=== PATIENT | male | born 1945 | race Caucasian/White ===

== ENCOUNTER 2019-05-29 00:32 | Day surgery (SDC) | payer MEDICARE, SELFPAY ==
[2019-05-28 16:59] VITALS: BMI 30.4
[2019-05-29] VITALS (11 sets, daily range): BP systolic 111–146; BP diastolic 78–90; PULSE 54–88; RESP 12–20; TEMP 36.8; O2SAT 93–99
--- NOTE | 2019-05-29 06:08 | ECG_ITS ---
Measurements Intervals [place] Rate: 89 P: [place]: 0 QRS: 43 QRSD: 101 T: 31 QT: 385 QTc: 469 Interpretive Statements ATRIAL FIBRILLATION NONSPECIFIC ST & T-WAVE ABNORMALITY- INF/LAT LEADS BASELINE ARTIFACT- II, III, V1 ABNORMAL ECG Electronically Signed On 05-29-2019 10:23:36 JBOSS ARCHITECT by Abe Nunez D.O.
--- NOTE | 2019-05-29 10:20 | SUR.PREOP ---
Patient and arrives to [facility] room [address] Martinez. oriented to unit, procedure explained, all questions answered, IV started, Labs drawn and sent, and consent signed.
[2019-05-29 11:03] LABS: Blood Urea Nitrogen 28 mg/dL (9-20); Calcium 9.3 mg/dL (8.4-10.2); Carbon Dioxide 27 mmol/L (22-30); Chloride 103 mmol/L (98-107); Estimated CRCL calculation 61 ml/min; Estimated Glomerular Filt Rate 54; Glucose 100 mg/dL (75-110); Magnesium 1.9 mg/dL (1.6-2.3); Potassium 4.6 mmol/L (3.4-5.0); Sodium 140 mmol/L (137-145)
--- NOTE | 2019-05-29 11:44 | WPDMODSED ---
Moderate Sedation Note-Pt Data Patient Data Diagnosis: Atrial fibrillation Present Complaint: None Procedure to be performed/Plan: Elective electrical cardioversion Allergies Allergy/AdvReac Type Severity Reaction Status Date / Time No Known Allergies Allergy NONE Verified 05/17/19 11:35 Home Medications Medication Instructions Recorded Confirmed Type Bacillus coagulans 10 billion cell 1 cell PO DAILY 02/24/19 05/29/19 History capsule,delayed release apixaban 5 mg tablet 5 mg PO BID 02/24/19 05/29/19 History calcium carbonate-vitamin D3 600 1 tablet PO BID 02/24/19 05/29/19 History mg (1,500 mg)-800 unit tablet diltiazem HCl 240 mg 240 mg PO DAILY 02/24/19 05/29/19 History capsule,extended release 24 hr docusate sodium 100 mg capsule 100 mg PO BID 02/24/19 05/29/19 History finasteride 5 mg tablet 5 mg PO HS 02/24/19 05/29/19 History fluticasone 250 mcg-salmeterol 50 1 inhalation INHALATION BID 02/24/19 05/29/19 History mcg/dose blistr powdr for inhalation levalbuterol tartrate 45 2 inhalation INHALATION Q6H 02/24/19 05/29/19 History mcg/actuation aerosol inhaler lisinopril 5 mg tablet 5 mg PO DAILY 02/24/19 05/29/19 History pantoprazole 40 mg tablet,delayed 40 mg PO HS 02/24/19 05/29/19 History release tamsulosin 0.4 mg capsule 0.4 mg PO HS 02/24/19 05/29/19 History meloxicam 7.5 mg tablet 7.5 mg PO DAILY #30 tablet 03/13/19 05/29/19 Rx tiotropium bromide 18 mcg capsule 1 cap INHALATION DAILY 05/17/19 05/29/19 History with inhalation device cholecalciferol (vitamin D3) 125 mcg PO DAILY 05/29/19 05/29/19 History [Vitamin D3] potassium gluconate 595 mg PO DAILY 05/29/19 05/29/19 History simvastatin 20 mg PO HS 05/29/19 05/29/19 History Current Medications: See list. Sedation/Anesthesia: No previous sedation/anesthesia problems (including family history). [facility] Past Medical History Medical History Anemia AVM (arteriovenous malformation) of colon COPD (chronic obstructive pulmonary disease) Duodenal cancer Hx of gastrointestinal hemorrhage MERVIN (obstructive sleep apnea) Paroxysmal atrial fibrillation Family History Family History Father Family history of emphysema, Onset Age: 84 Patient's father is Mother Family history of dementia, Onset Age: 86 Patient's mother is Social History Social History Smoking status: Former smoker Second hand tobacco smoke exposure: No Smoking end date: 04/18/04 Alcohol intake: current Gender identity (if verbalized by the patient): Male Mod Sed Physical Exam Physical Exam Pre Procedural Exam: Normal: Appearance, Eyes, Ears, Nose, Neck (Supple, normal range of motion), Throat (Posterior hypopharynx clear, nonerythematous), Airway (Normal anatomy, no obstruction), Lungs (Clear to auscultation bilaterally), Heart Size, Heart Rate, Neuro Exam, Abdomen, Liver, Kidneys, Extremities and Skin and Variation: Heart Rhythm (Irregular irregular) Hours since solid foods: 12 Hours since liquid intake: 12 Internal Medicine - PN: Obj Da Vital Signs Vital Signs: Vital Signs - 24 hr 05/29/19 10:21 Temperature 36.8 C Pulse Rate 88 Respiratory Rate 19 Blood Pressure 146/85 H Pulse Oximetry 94 Labs CBC & Chem 7: 05/29/19 10:19 Labs: Laboratory Results - last 24 hr 05/29/19 10:19 Sodium 140 Potassium 4.6 Chloride 103 Carbon Dioxide 27 BUN 28 H Creatinine 1.30 Estim Creat Clear Calc 61 Estimated GFR 54 L Glucose 100 Calcium 9.3 Magnesium 1.9 ASA Classification/Sedation ASA Classification/Sedation ASA Class: III Emergent: No Risks: Risks, benefits and alternatives explained and patient/family accepted plan for sedation. Patient re-evaluated immediately prior to sedation.
--- NOTE | 2019-05-29 11:49 | WPDHPUPDATE1 ---
History and Physical Update Update Date/Time: 05/29/19 11:49 Past medical history: As above. Social history:
--- NOTE | 2019-05-29 12:33 | ECG_ITS ---
Measurements Intervals [place] Rate: 57 P: -18 [place]: 222 QRS: 27 QRSD: 104 T: 45 QT: 422 QTc: 413 Interpretive Statements SINUS BRADYCARDIA WITH FIRST DEGREE AV BLOCK NONSPECIFIC ST & T-WAVE ABNORMALITY- DIFFUSE LEADS ABNORMAL ECG Electronically Signed On 05-29-2019 13:01:14 MANAGEMENT DEPARTMENT CHAIR by Abe BEAL
--- NOTE | 2019-05-29 12:34 | SUR.PHASEII ---
Patient remains in [facility] room [address] Martinez. Carlosm converted after a single shock of 200 J to sinus bradycardia.
--- NOTE | 2019-05-29 12:41 | P.PCNCVR_ITS ---
Cardioversion Cardioversion Date of procedure: 05/29/19 Procedure: Elective electrical cardioversion Pre-op diagnosis: Atrial fibrillation Post-op diagnosis: same Indications: Atrial fibrillation Description of procedure: Brief history present illness: Patient is a pleasant 73-year-old male with history of CAD, hypertension, obstructive sleep apnea on CPAP, and atrial fibrillation on anticoagulation with persistent atrial fibrillation referred for elective electrical cardioversion in attempt to restore sinus rhythm. Procedure in detail: After verbal and written informed consent was obtained the patient risks, benefits, and alternatives explained in detail the patient agreed to proceed with the plan of care as outlined above. Patient was evaluated at bedside in the [facility] procedure room. On examination, neck was supple with normal range of motion, no restrictions to opening of the oral cavity, jaw angle and posterior hypopharynx was clear. Lungs were clear to auscultation. Patient was placed in appropriate 30 to 45 degree angle in a supine position. Patient was monitored throughout the study with telemetry, oxygen saturation, end-tidal CO2 monitoring, blood pressure, heart rate, and respirations. Anterior and posterior defibrillator pads placed in the appropriate positions. After confirmation of adequate sedation electrical cardioversion was carried out without complication. Patient tolerated the procedure well without difficulty. Of note, patient as instructed brought his CPAP machine from home. With the assistance of respiratory therapy he was fitted with a mask as he forgot his and his device was checked out for function prior to beginning the procedure. Once all was confirmed and functional he underwent sedation and cardioversion with CPAP support. Complications: None Sedation: Moderate Sedation/Anesthesia administration: Patient denied previous intolerance or complications with anesthesia/sedation. Please see sedation note for documentation of the pre-procedure physical examination. A total of 5mg intravenous Versed and a total of 100 mcg intravenous Fentanyl in multiple divided doses was utilized for moderate sedation. Sedation start time was 1212 and end time was 1231 for a total of 19 minutes [id number] intra-procedure time. Sedation was administered by a qualified observer Gilles Lees RN under my supervision with intra-procedure [id number] observation and management throughout the entirety of the pr ocedure. There were no other issues or complications and patient tolerated the procedure well and sedation protocol well and I was present for the entirety. As above, patient wore CPAP for additional support throughout procedure. Findings: Elective electrical cardioversion: After confirmation of adequate sedation and persistence of atrial fibrillation, 200 joules synched biphasic energy x1 was delivered with immediate confucianism of sinus rhythm. Twelve lead EKG was obtained postprocedure confirming sinus rhythm. Conclusion: Successful confucianism of sinus rhythm 200 joules synched biphasic energy x1. Recommendations: Continue systemic anticoagulation without interruption particularly over the next 30 days. Continue diltiazem 360 mg daily monitor heart rate and blood pressure closely call with any concerns or questions.
== END 2019-05-29 15:23 | disposition home or self-care (01) ==
PROVIDERS: PCP Internal Medicine; Visit Provider Internal Medicine Cardiovascular Disease
PROC: 5A2204Z Restoration of Cardiac Rhythm, Single (ICD-10-PCS; principal; 2019-05-29 11:30)
DX: I48.19 Other persistent atrial fibrillation (principal); I10 Essential (primary) hypertension; I25.10 Atherosclerotic heart disease of native coronary artery without angina pectoris; G47.33 Obstructive sleep apnea (adult) (pediatric); D64.9 Anemia, unspecified; Z79.01 Long term (current) use of anticoagulants; Z87.891 Personal history of nicotine dependence
CPT/HCPCS: 36415; 80048; 83735; 92960; 93005; J7040

== ENCOUNTER 2019-07-11 08:29 | Inpatient (IN) | payer MEDICARE, SELFPAY ==
[2019-07-11] VITALS (11 sets, daily range): BP systolic 126–151; BP diastolic 84–101; PULSE 63–112; RESP 16–20; TEMP 36.4–37.3; O2SAT 92–96; BMI 30.6
--- NOTE | 2019-07-11 | ECG_ITS ---
Measurements Intervals [place] Rate: 101 P: CT: 0 QRS: 46 QRSD: 102 T: 95 QT: 354 QTc: 461 Interpretive Statements ATRIAL FIBRILLATION WITH RAPID VENTRICULAR RESPONSE NONSPECIFIC ST & T-WAVE ABNORMALITY- DIFFUSE LEADS ABNORMAL ECG Electronically Signed On 07-11-2019 14:13:05 CDT by Abe Nunez D.O.
--- NOTE | 2019-07-11 08:50 | PC.NURSE ---
This patient, Gregor Parikh, was admitted to IMU Room 200-01. Patient/family oriented to hospital policies and general routines including ID bracelet, bed and alarms, visiting hours, pain management, procedures, bathroom and other care routines, personal items, smoking policy, room service/diet, and visiting hours. Valuables list has been completed. Information on how to activate the Rapid Response Team has been discussed. Patient/Family are encouraged to report perceived risks to care and to ask questions if they do not understand what they are told or what they should do.
--- NOTE | 2019-07-11 10:35 | ECG_ITS ---
Measurements Intervals [place] Rate: 101 P: [place]: 0 QRS: 49 QRSD: 102 T: 0 QT: 352 QTc: 458 Interpretive Statements ATRIAL FIBRILLATION WITH RAPID VENTRICULAR RESPONSE NONSPECIFIC ST & T-WAVE ABNORMALITY- DIFFUSE LEADS ABNORMAL ECG Electronically Signed On 07-11-2019 10:58:11 CDT by Abe Nunez D.O.
--- NOTE | 2019-07-11 11:10 | PM.IMHP ---
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 Patient was then set up for a scheduled direct admit for sotalol loading. Patient feels well with exception of feeling somewhat tired with some shortness of breath. No chest pain, dizziness, lightheadedness or significant palpitations. No bleeding. Patient has been compliant with his anticoagulation without interruption. He has no other complaints at this time. Denies edema, bright red blood per rectum, fevers, chills, cough, orthopnea or PND. Review of Systems Review of Systems: All systems reviewed & are unremarkable except as noted in HPI and below Constitutional: Constitutional: Reports as per HPI, Reports no additional constitutional complaints, Reports fatigue and Denies weakness Eyes: Eyes: Reports as per HPI, Reports no additional eye complaints and Denies blurry vision ENT: Reports system reviewed and no additional complaints, except as documented, Reports as per HPI, Denies epistaxis, Denies nasal congestion and Denies nasal discharge Cardiovascular: Cardiovascular: Reports as per HPI, Reports no additional cardiovascular complaints, Denies chest pain, Denies leg edema, Denies lightheadedness and Denies palpitations Respiratory: Respiratory: Reports as per HPI, Reports no additional respiratory complaints, Denies chest congestion, Denies cough, Denies hemoptysis, Reports dyspnea on exertion and Denies wheezing Gastrointestinal: Gastrointestinal: Reports as per HPI, Reports no additional gastrointestinal complaints, Denies abdominal pain, Denies melena, Denies hematochezia, Denies diarrhea, Denies nausea, Denies vomiting and Denies hematemesis Genitourinary: Genitourinary: Reports no additional male genitourinary complaints, Reports as per HPI, Denies hematuria and Denies dysuria Musculoskeletal: Musculoskeletal: Reports no additional musculoskeletal complaints, Reports as per HPI, Denies back pain, Denies myalgias and Denies stiffness Integumentary/Breasts: Skin/Breast: Reports system reviewed and no additional complaints, except as docu, Reports as per HPI and Denies rash Neurologic: Reports system reviewed and no additional complaints, except as documented, Reports as per HPI, Denies Abnormal speech present and Denies headache(s) Psychiatric: Psychiatric: Reports no additional psychiatric complaints, Reports as per HPI, Denies anxiety, Denies behavioral changes and Denies confusion Endocrine: Endocrine: Reports no additional endocrine complaints, Reports as per HPI and Reports fatigue Hematologic/Lymphatic: Hematologic/Lymphatic: Reports no additional hematologic/lymphatic complaints, Reports as per HPI, Denies easy bleeding and Denies easy bruising Allergic/Immunologic: Allergic/Immunologic: Reports no additional allergic/immunologic complaints, Reports as per HPI and Denies GI upset with certain foods PMFSH Past Medical History Medical History Anemia AVM (arteriovenous malformation) of colon COPD (chronic obstructive pulmonary disease) Duodenal cancer Hx of gastrointestinal hemorrhage MERVIN (obstructive sleep apnea) Paroxysmal atrial fibrillation Family History Family History Father Family history of emphysema, Onset Age: 84 Patient's father is Mother Family history of dementia, Onset Age: 86 Patient's mother is Social History
[2019-07-11] MEDS: SOTALOL HCL 80 MG TABLET PO ×2 (12:01→21:46)
[2019-07-11] MEDS: APIXABAN 5 MG TABLET PO (17:35)
[2019-07-11] MEDS: DOCUSATE SODIUM 100 MG CAPSULE PO (17:35)
[2019-07-11] MEDS: TAMSULOSIN HCL 0.4 MG CAPSULE PO (21:46)
[2019-07-11] MEDS: FINASTERIDE 5 MG TABLET PO (21:46)
[2019-07-11] MEDS: SIMVASTATIN 20 MG TABLET PO (21:46)
[2019-07-11] MEDS: PANTOPRAZOLE 40 MG TABLET PO (21:46)
--- NOTE | 2019-07-11 23:58 | ECG_ITS ---
Measurements Intervals [place] Rate: 62 P: [place]: 0 QRS: 50 QRSD: 107 T: 93 QT: 422 QTc: 431 Interpretive Statements ATRIAL FIBRILLATION NONSPECIFIC ST & T-WAVE ABNORMALITY- DIFFUSE LEADS ABNORMAL ECG Electronically Signed On 07-12-2019 11:19:44 CDT by Abe Nunez D.O.
[2019-07-12] VITALS (18 sets, daily range): BP systolic 118–144; BP diastolic 72–91; PULSE 53–96; RESP 16–18; TEMP 36.1–36.9; O2SAT 90–96
[2019-07-12] MEDS: SOTALOL HCL 80 MG TABLET PO ×2 (09:15→21:40)
[2019-07-12] MEDS: APIXABAN 5 MG TABLET PO ×2 (09:15→17:26)
[2019-07-12] MEDS: lisinopriL 5 MG TABLET PO (09:15)
[2019-07-12] MEDS: CHOLECALCIFEROL 1,000 UNIT TABLET 5000 UNITS PO (09:16)
[2019-07-12] MEDS: DOCUSATE SODIUM 100 MG CAPSULE PO ×2 (09:16→17:26)
--- NOTE | 2019-07-12 10:32 | PM.PNCARD ---
Progress Note: A&P Assessment and Plan (1) Persistent atrial fibrillation: Code(s): I48.19 - Other persistent atrial fibrillation Status: Acute Assessment and Plan: Admitted for sotalol loading. QTc is stable. No ventricular arrhythmias overnight. Occasional bradycardia during sleep hours with pauses. Longest 2.09 seconds Continue sotalol loading with EKGs 2 hours after each dose. Labs pending. If he does not convert with sotalol will plan for cardioversion for tomorrow. NPO after midnight. (2) Encounter for monitoring sotalol therapy: Code(s): Z51.81 - Encounter for therapeutic drug level monitoring; Z79.899 - Other terminal gauger supervisor (current) drug therapy Status: Acute Assessment and Plan: Sotalol loading as above. (3) CAD (coronary artery disease): Qualifiers: Coronary Disease-Associated Artery/Lesion type: [place] artery [place] vs. transplanted heart: [place] heart Associated angina: without angina Qualified Code(s): I25.10 - Atherosclerotic heart disease of [place] coronary artery without angina pectoris Code(s): I25.10 - Atherosclerotic heart disease of [place] coronary artery without angina pectoris Status: Acute Assessment and Plan: Stable, asymptomatic. Continue medical therapy. Continue simvastatin (4) Hypertension: Qualifiers: Hypertension type: essential hypertension Qualified Code(s): I10 - Essential (primary) hypertension Code(s): I10 - Essential (primary) hypertension Status: Acute Assessment and Plan: At goal after medications. (5) Chronic anticoagulation: Code(s): Z79.01 - assistant terminal manager (current) use of anticoagulants Status: Acute Assessment and Plan: Continue systemic anticoagulation with apixaban 5 mg twice daily. Monitor for bleeding. Additional Plan Plan discussed with Dr. Martinez 1055 07/12/2019 Time Spent With Patient Time with patient: less than 15 minutes Subjective Date/time seen: 07/12/19 10:32 Review of Systems Constitutional: Constitutional: Denies headache(s) and Denies weakness Eyes: Eyes: Denies blurry vision ENT: Denies headache(s), Denies epistaxis, Denies nasal congestion and Denies nasal discharge Cardiovascular: Cardiovascular: Denies chest pain, Denies leg edema, Denies lightheadedness, Denies palpitations and Denies dyspnea Respiratory: Respiratory: Denies chest congestion, Denies cough, Denies hemoptysis, Denies dyspnea and Denies wheezing Gastrointestinal: Gastrointestinal: Denies abdominal pain, Denies melena, Denies hematochezia, Denies diarrhea, Denies nausea, Denies vomiting and Denies hematemesis Genitourinary: Genitourinary: Denies hematuria and Denies dysuria Musculoskeletal: Musculoskeletal: Reports arthralgias Integumentary/Breasts: Skin/Breast: Denies rash Neurologic: Denies Abnormal speech present, Denies behavioral changes, Denies confusion, Denies headache(s) and Denies weakness Psychiatric: Psychiatric: Denies anxiety, Denies behavioral changes and Denies confusion Endocrine: Endocrine: Reports fatigue and Denies palpitations Hematologic/Lymphatic: Hematologic/Lymphatic: Denies easy bleeding and Denies easy bruising Allergic/Immunologic: Allergic/Immunologic: Denies GI upset with certain foods and Denies wheezing Exam Narrative: Exam Narrative: General: Sitting up in bed. Comfortable, pleasant and cooperative Head: atraumatic, normocephalic Eyes: EOM intact, sclerae anicteric, conjunctivae unremarkable Ears/Nose: external inspection of ears and nose were grossly normal Mouth/Throat: oral mucosa pink and moist Neck: supple, normal range of motion, no jugular venous distention, trachea midline. Cardiac: irregular rate and rhythm, normal S1-S2, no murmurs, clicks, gallops, or rubs. Lungs: Clear to ausculta
[2019-07-12 10:54] LABS: Hematocrit 45.6 % (42.0-52.0); Hemoglobin 14.8 g/dL (14.0-18.0); Mean Corpuscular HGB Conc 32.5 g/dl (32-36); Mean Corpuscular Volume 101.8 fl (80-100); Mean Platelet Volume 9.9 fl (7.4-10.4); Platelet Count Result 291 k/mm3 (150-375); Red Blood Count 4.48 M/mm3 (4.6-6.20); White Blood Count 7.2 K/mm3 (4.5-10.0)
[2019-07-12 11:06] LABS: Alanine Aminotransferase 15 U/L (4-50); Albumin Level 3.4 g/dL (3.5-5.1); Alkaline Phosphatase 47 U/L (38-126); Aspartate Amino Transferase 20 U/L (17-59); Bilirubin,Total 0.7 mg/dL (0.2-1.3); Blood Urea Nitrogen 29 mg/dL (9-20); Carbon Dioxide 30 mmol/L (22-30); Chloride 102 mmol/L (98-107); Estimated CRCL calculation 59 ml/min; Estimated Glomerular Filt Rate 54; Glucose 107 mg/dL (75-110); Potassium 4.3 mmol/L (3.4-5.0); Sodium 139 mmol/L (137-145)
[2019-07-12 11:08] LABS: Magnesium 1.9 mg/dL (1.6-2.3)
--- NOTE | 2019-07-12 11:15 | ECG_ITS ---
Measurements Intervals [place] Rate: 67 P: [place]: 0 QRS: 45 QRSD: 100 T: 104 QT: 429 QTc: 455 Interpretive Statements ATRIAL FIBRILLATION VENTRICULAR PREMATURE COMPLEX NONSPECIFIC ST & T-WAVE ABNORMALITY- DIFFUSE LEADS ABNORMAL ECG Electronically Signed On 07-12-2019 13:36:02 CDT by Abe Nunez D.O.
[2019-07-12] MEDS: TAMSULOSIN HCL 0.4 MG CAPSULE PO (21:40)
[2019-07-12] MEDS: FINASTERIDE 5 MG TABLET PO (21:40)
[2019-07-12] MEDS: SIMVASTATIN 20 MG TABLET PO (21:41)
[2019-07-12] MEDS: PANTOPRAZOLE 40 MG TABLET PO (21:41)
--- NOTE | 2019-07-12 23:39 | ECG_ITS ---
Measurements Intervals [place] Rate: 70 P: [place]: 0 QRS: 52 QRSD: 109 T: 85 QT: 426 QTc: 460 Interpretive Statements ATRIAL FIBRILLATION NONSPECIFIC ST & T-WAVE ABNORMALITY- INF/LAT LEADS ABNORMAL ECG Electronically Signed On 07-13-2019 7:17:51 CDT by Abe Nunez D.O.
[2019-07-13] VITALS (17 sets, daily range): BP systolic 106–160; BP diastolic 63–88; PULSE 48–86; RESP 12–20; TEMP 36.2–37; O2SAT 91–96
[2019-07-13 06:45] LABS: Blood Urea Nitrogen 28 mg/dL (9-20); Calcium 9.7 mg/dL (8.4-10.2); Carbon Dioxide 27 mmol/L (22-30); Chloride 107 mmol/L (98-107); Estimated CRCL calculation 54 ml/min; Estimated Glomerular Filt Rate 49; Glucose 97 mg/dL (75-110); Magnesium 1.9 mg/dL (1.6-2.3); Sodium 136 mmol/L (137-145)
[2019-07-13] MEDS: APIXABAN 5 MG TABLET PO (07:44)
--- NOTE | 2019-07-13 09:08 | ECG_ITS ---
Measurements Intervals [place] Rate: 48 P: -2 ID: 204 QRS: 32 QRSD: 100 T: 98 QT: 488 QTc: 440 Interpretive Statements SINUS BRADYCARDIA BORDERLINE AV CONDUCTION DELAY LEFT ATRIAL ENLARGEMENT BORDERLINE ST-T WAVE ABNORMALITY- DIFFUSE LEADS ABNORMAL ECG Electronically Signed On 07-13-2019 10:40:56 CDT by Abe Nunez D.O.
--- NOTE | 2019-07-13 09:12 | WPDMODSED ---
Moderate Sedation Note-Pt Data Patient Data Diagnosis: Atrial fibrillation Present Complaint: Non Procedure to be performed/Plan: Elective electrical cardioversion Allergies Allergy/AdvReac Type Severity Reaction Status Date / Time No Known Allergies Allergy NONE Verified 05/17/19 11:35 Home Medications Medication Instructions Recorded Confirmed Type Bacillus coagulans 10 billion cell 1 cell PO DAILY 02/24/19 07/11/19 History capsule,delayed release apixaban 5 mg tablet 5 mg PO BID 02/24/19 07/11/19 History calcium carbonate-vitamin D3 600 1 tablet PO BID 02/24/19 07/11/19 History mg (1,500 mg)-800 unit tablet docusate sodium 100 mg capsule 100 mg PO BID 02/24/19 07/11/19 History finasteride 5 mg tablet 5 mg PO HS 02/24/19 07/11/19 History fluticasone 250 mcg-salmeterol 50 1 inhalation INHALATION BID 02/24/19 07/11/19 History mcg/dose blistr powdr for inhalation levalbuterol tartrate 45 2 inhalation INHALATION PRN PRN 02/24/19 07/11/19 History mcg/actuation aerosol inhaler lisinopril 5 mg tablet 5 mg PO DAILY 02/24/19 07/11/19 History pantoprazole 40 mg tablet,delayed 40 mg PO HS 02/24/19 07/11/19 History release tamsulosin 0.4 mg capsule 0.4 mg PO HS 02/24/19 07/11/19 History tiotropium bromide 18 mcg capsule 1 cap INHALATION DAILY 05/17/19 07/11/19 History with inhalation device cholecalciferol (vitamin D3) 125 mcg PO DAILY 05/29/19 07/11/19 History [Vitamin D3] diltiazem HCl [Cardizem CD] 360 mg PO DAILY #30 cap 05/29/19 07/11/19 Rx potassium gluconate 99 mg PO DAILY 05/29/19 07/11/19 History simvastatin 20 mg PO HS 05/29/19 07/11/19 History meloxicam 7.5 mg tablet 7.5 mg PO DAILY #30 tablet 06/20/19 07/11/19 Rx Current Medications: Active Medications Apixaban (Eliquis) 5 mg PO BID KASSANDRA Last Admin: 07/13/19 07:44 Dose: 5 mg Documented by: Calcium Carbonate (Os-Rajinder 500 +D Tablet) 500 mg PO BID [facility] Last Admin: 07/12/19 17:26 Dose: 500 mg Documented by: Docusate Sodium (Colace Capsule) 100 mg PO BID [facility] Last Admin: 07/12/19 17:26 Dose: 100 mg Documented by: Finasteride (Proscar) 5 mg PO [facility] Last Admin: 07/12/19 21:40 Dose: 5 mg Documented by: Levalbuterol HCl (Xopenex Hfa) 2 puff INHALATION PRN PRN PRN Reason: Bronchospasm Lisinopril (Prinivil) 5 mg PO DAILY [facility] Last Admin: 07/12/19 09:15 Dose: 5 mg Documented by: Pantoprazole Sodium (Protonix) 40 mg PO [facility] Last Admin: 07/12/19 21:41 Dose: 40 mg Documented by: Fluticasone/Salmeterol (Advair Hfa 115-21 Mcg Inhaler (*Sp)) 2 puff INHALATION Q12HRT [facility] Last Admin: 07/13/19 08:21 Dose: 2 puff Documented by: Simvastatin (Zocor) 20 mg PO [facility] Last Admin: 07/12/19 21:41 Dose: 20 mg Documented by: Sotalol HCl (Betapace) 80 mg PO Q12HR [facility] Last Admin: 07/12/19 21:40 Dose: 80 mg Documented by: Tamsulosin HCl (Flomax) 0.4 mg PO [facility] Last Admin: 07/12/19 21:40 Dose: 0.4 mg Documented by: Tiotropium [place] (Spiriva) 1 cap INHALATION DAILY [facility] Last Admin: 07/13/19 08:21 Dose: 1 cap Documented by: Vitamin D (Vitamin D) 5,000 unit PO DAILY [facility] Last Admin: 07/12/19 09:16 Dose: 5,000 unit Documented by: Sedation/Anesthesia: No previous sedation/anesthesia problems (including family history). [facility] Past Medical History Medical History Anemia AVM (arteriovenous malformation) of colon CAD (coronary artery disease) Chronic anticoagulation COPD (chronic obstructive pulmonary disease) Duodenal cancer Hx of gastrointestinal hemorrhage Hypertension MERVIN (obstructive sleep apnea) Paroxysmal atrial fibrillation Persistent atrial fibrillation Family History Family History Father Family history of emphysema, Onset Age: 84 Patient's father is Mother Family history of dementia, Onset Age: 86 Patient's mother is Social History
--- NOTE | 2019-07-13 09:13 | WPDCARDVER ---
Cardioversion Cardioversion Date of procedure: 07/13/19 Procedure: Elective electrical cardioversion Pre-op diagnosis: Atrial fibrillation Post-op diagnosis: same Indications: Atrial fibrillation Description of procedure: Brief history present illness: Patient is a very pleasant 74-year-old male with a history of paroxysmal atrial fibrillation with prior failed cardioversion admitted for sotalol loading, CAD, hypertension on chronic anticoagulation without interruption referred for elective electrical cardioversion in attempt to restore sinus rhythm. Procedure in detail: After verbal and written informed consent was obtained the patient risks, benefits, and alternatives explained in detail the patient agreed to proceed with the plan of care as outlined above. Patient was evaluated at bedside in the patient's room with telemetry monitoring in an effort to minimize patient transport due to COVID-19 precautions in the hospital. On examination, neck was supple with normal range of motion, no restrictions to opening of the oral cavity, jaw angle and posterior hypopharynx was clear. Lungs were clear to auscultation. Patient was placed in appropriate 30 to 45 degree angle in a supine position. Patient was monitored throughout the study with telemetry, oxygen saturation, end-tidal CO2 monitoring, blood pressure, heart rate, and respirations. Anterior and posterior defibrillator pads placed in the appropriate positions. After confirmation of adequate sedation electrical cardioversion was carried out without complication. Patient tolerated the procedure well without difficulty. Sedation: Moderate Sedation/Anesthesia administration: Patient denied previous intolerance or complications with anesthesia/sedation. Please see sedation note for documentation of the pre-procedure physical examination. As noted above, after adequate local anesthesia of the posterior hypopharynx was achieved, a total of 3mg intravenous Versed and a total of 75mcg intravenous Fentanyl in multiple divided doses was utilized for moderate sedation. Sedation start time was 0855 and end time was 0904 for a total of 9 minutes [id number] intra-procedure time. Sedation was administered by a qualified observer Gilles Lees RN under my supervision with intra-procedure [id number] observation and management throughout the entirety of the procedure. There were no other issues or complications and patient tolerated the procedure well and sedation protocol well and I was present for the entirety. Of note, given patient's history of sleep apnea and use of CPAP chronically, his home CPAP was utilized throughout the procedure. Patient did very well without complication in this regard. Findings: Elective electrical cardioversion: After confirmation of adequate sedation and persistence of atrial fibrillation, 200 joules synched biphasic energy x1 was delivered with immediate hoahaoism of sinus rhythm. Twelve lead EKG was obtained postprocedure confirming sinus rhythm. Complications: None Conclusion: Successful hoahaoism of sinus rhythm with 200 joules synched biphasic energy x1 without complication. Continue systemic anticoagulation without interruption strictly for the next 30 days. Continue sotalol 80 mg twice daily.
--- NOTE | 2019-07-13 09:19 | PM.PNCARD ---
Progress Note: A&P Assessment and Plan (1) Persistent atrial fibrillation: Code(s): I48.19 - Other persistent atrial fibrillation Status: Acute Assessment and Plan: Admitted for sotalol loading. QTc is stable. No ventricular arrhythmias overnight. Cardioversion scheduled today NPO after midnight. If successful and tolerated well discharge home today. Continue CPAP at home. (2) Encounter for monitoring sotalol therapy: Code(s): Z51.81 - Encounter for therapeutic drug level monitoring; Z79.899 - Other skilled nursing (current) drug therapy Status: Acute Assessment and Plan: Sotalol loading as above. (3) CAD (coronary artery disease): Qualifiers: Coronary Disease-Associated Artery/Lesion type: [place] artery [place] vs. transplanted heart: [place] heart Associated angina: without angina Qualified Code(s): I25.10 - Atherosclerotic heart disease of [place] coronary artery without angina pectoris Code(s): I25.10 - Atherosclerotic heart disease of [place] coronary artery without angina pectoris Status: Acute Assessment and Plan: Stable, asymptomatic. Continue medical therapy. Continue simvastatin (4) Hypertension: Qualifiers: Hypertension type: essential hypertension Qualified Code(s): I10 - Essential (primary) hypertension Code(s): I10 - Essential (primary) hypertension Status: Acute Assessment and Plan: At goal after medications. (5) Chronic anticoagulation: Code(s): Z79.01 - prison (current) use of anticoagulants Status: Acute Assessment and Plan: Continue systemic anticoagulation with apixaban 5 mg twice daily. Monitor for bleeding. Subjective Date/time seen: Date of service: 07/13/19 09:19 Follow-up for atrial fibrillation. No new issues overnight. Maintaining atrial fibrillation with controlled heart rate 70s to 80s on average. No palpitation, shortness of breath, dizziness or lightheadedness. No chest pain or shortness of breath. NPO after midnight for cardioversion schedule this morning. Review of Systems Review of Systems: All systems reviewed & are unremarkable except as noted in HPI and below Constitutional: Constitutional: Denies headache(s) and Denies weakness Eyes: Eyes: Denies blurry vision ENT: Denies headache(s), Denies epistaxis, Denies nasal congestion and Denies nasal discharge Cardiovascular: Cardiovascular: Denies chest pain, Denies leg edema, Denies lightheadedness, Denies palpitations and Denies dyspnea Respiratory: Respiratory: Denies chest congestion, Denies cough, Denies hemoptysis, Denies dyspnea and Denies wheezing Gastrointestinal: Gastrointestinal: Denies abdominal pain, Denies melena, Denies hematochezia, Denies diarrhea, Denies nausea, Denies vomiting and Denies hematemesis Genitourinary: Genitourinary: Denies hematuria and Denies dysuria Musculoskeletal: Musculoskeletal: Reports arthralgias Integumentary/Breasts: Skin/Breast: Denies rash Neurologic: Denies Abnormal speech present, Denies behavioral changes, Denies confusion, Denies headache(s) and Denies weakness Psychiatric: Psychiatric: Denies anxiety, Denies behavioral changes and Denies confusion Endocrine: Endocrine: Denies palpitations Hematologic/Lymphatic: Hematologic/Lymphatic: Denies easy bleeding and Denies easy bruising Allergic/Immunologic: Allergic/Immunologic: Denies GI upset with certain foods and Denies wheezing Exam Narrative: Exam Narrative: General: Sitting up in bed. Comfortable, pleasant and cooperative Head: atraumatic, normocephalic Eyes: EOM intact, sclerae anicteric, conjunctivae unremarkable Ears/Nose: external inspection of ears and nose were grossly normal Mouth/Throat: oral mucosa pink and moist Neck: supple, normal range of motion, no jugular venou
[2019-07-13] MEDS: CHOLECALCIFEROL 1,000 UNIT TABLET 5000 UNITS PO (11:17)
[2019-07-13] MEDS: DOCUSATE SODIUM 100 MG CAPSULE PO (11:17)
[2019-07-13] MEDS: lisinopriL 5 MG TABLET PO (11:18)
[2019-07-13] MEDS: SOTALOL HCL 80 MG TABLET PO (12:17)
--- NOTE | 2019-07-13 15:24 | PM.DS ---
DS: Diagnosis Admitting Diagnosis Admitting Diagnosis: Other persistent atrial fibrillation Discharge Diagnosis (1) Persistent atrial fibrillation: Code(s): I48.19 - Other persistent atrial fibrillation Status: Acute Assessment and Plan: Admitted for sotalol loading. QTc is stable. Successful cardioversion. EKG post cardioversion QTc 440 milliseconds Continue sotalol 80 mg every 12 hours Continue apixaban 5 mg b.i.d. for anticoagulation. (2) Encounter for monitoring sotalol therapy: Code(s): Z51.81 - Encounter for therapeutic drug level monitoring; Z79.899 - Other dedicated intermodal truck driver (current) drug therapy Status: Acute Assessment and Plan: As above (3) CAD (coronary artery disease): Qualifiers: Coronary Disease-Associated Artery/Lesion type: [place] artery [place] vs. transplanted heart: [place] heart Associated angina: without angina Qualified Code(s): I25.10 - Atherosclerotic heart disease of [place] coronary artery without angina pectoris Code(s): I25.10 - Atherosclerotic heart disease of [place] coronary artery without angina pectoris Status: Acute Assessment and Plan: Stable, asymptomatic. Continue medical therapy. Continue simvastatin (4) Hypertension: Qualifiers: Hypertension type: essential hypertension Qualified Code(s): I10 - Essential (primary) hypertension Code(s): I10 - Essential (primary) hypertension Status: Acute Assessment and Plan: At goal after medications (5) Chronic anticoagulation: Code(s): Z79.01 - termite inspector (current) use of anticoagulants Status: Acute Assessment and Plan: Continue systemic anticoagulation with apixaban 5 mg twice daily. Monitor for bleeding. DS: Summary Hospital Course Reason for hospitalization: Persistent atrial fibrillation Hospital Course: 74-year-old male with persistent atrial fibrillation brought in for sotalol loading. EKGs were obtained 2 hours after each dose with evaluation of QTc each time. Remained in atrial fibrillation after 4 doses of sotalol. Underwent successful cardioversion to sinus bradycardia/sinus rhythm with adequate QTc. Discharged home in stable condition. Will follow QTc in 1 week. Status at Discharge Functional status at discharge: independent ambulation Overall status at discharge: patient is back to baseline Time Spent with Patient Time attestation: Total time spent providing and/or coordinating discharge services: Time spent: Less than 30 minutes Exam Narrative: Exam Narrative: General: Sitting up in bed. Comfortable, pleasant and cooperative Head: atraumatic, normocephalic Eyes: EOM intact, sclerae anicteric, conjunctivae unremarkable Ears/Nose: external inspection of ears and nose were grossly normal Mouth/Throat: oral mucosa pink and moist Neck: supple, normal range of motion, no jugular venous distention, trachea midline. Cardiac: irregular rate and rhythm, normal S1-S2, no murmurs, clicks, gallops, or rubs. Lungs: Clear to auscultation bilaterally, no rales, wheezes, or rhonchi. Abdomen: Soft, nontender, nondistended, positive bowel sounds throughout. Extremities: No edema, clubbing, and or cyanosis. Extremities warm and well perfused. Skin: Warm and dry without ecchymoses, rashes, and/or petechiae. Musculoskeletal: Muscle strength and tone intact throughout without obvious deformities. Vascular: Carotid upstrokes 2+ bilaterally, radial pulses 2+ bilaterally, dorsalis pedis pulses 2+ bilaterally, posterior tibialis pulses palpable bilaterally. Neurologic: Cranial nerves 2-12 grossly intact, examination grossly nonfocal Pscyhiatric: Mood calm and appropriate. DS: Data Data Completed and Pending Labs on day of discharge: Labs f
== END 2019-07-13 12:53 | disposition home or self-care (01) | DRG 310 ==
PROVIDERS: Nurse Practitioner Adult Health; Admitting Provider Internal Medicine Cardiovascular Disease; PCP Internal Medicine; Visit Provider Internal Medicine Cardiovascular Disease
PROC: 5A2204Z Restoration of Cardiac Rhythm, Single (ICD-10-PCS; principal; 2019-07-13 08:00)
DX: I48.19 Other persistent atrial fibrillation (principal); Z51.81 Encounter for therapeutic drug level monitoring; Z79.899 Other long term (current) drug therapy; I25.10 Atherosclerotic heart disease of native coronary artery without angina pectoris; I10 Essential (primary) hypertension; Z79.01 Long term (current) use of anticoagulants; R00.1 Bradycardia, unspecified; Z87.891 Personal history of nicotine dependence
CPT/HCPCS: 36415; 80048; 80053; 83735; 85027; 92960; 93005; 94640; A9270; J2250; J3010; J7040

== ENCOUNTER 2020-08-06 12:30 | Outpatient (CLI) | payer MEDICARE, SELFPAY ==
--- NOTE | 2020-08-09 13:32 | WPDSIXMINUTE ---
Six Minute Walk Six Minute Walk: The patients O2 sats started at 97% and dropped as low as 93% on room air Total walk distance 600 ft conclusion: this patient does not qualify for home oxygen therapy. Six Minute Walk Procedure Procedure Performed Pulmonary Stress Test (6 min walk)
== END 2020-08-06 12:31 | disposition home or self-care (01) ==
PROVIDERS: PCP Internal Medicine; Visit Provider Nurse Practitioner Family
DX: R06.02 Shortness of breath (principal)
CPT/HCPCS: 94618

== ENCOUNTER → 2020-11-25 02:31 | Outpatient (CLI) | payer MEDICARE, SELFPAY ==
[2020-11-26 15:32] LABS: SARS-CoV-2 RNA PCR Positive
== END ==
PROVIDERS: PCP Internal Medicine; Visit Provider Internal Medicine
DX: U07.1 COVID-19 (principal)
CPT/HCPCS: C9803; U0003; U0005

== ENCOUNTER 2020-11-27 13:48 | Outpatient (RCR) | payer MEDICARE, SELFPAY ==
[2020-11-27] MEDS: diphenhydrAMINE HCl CAP 25 MG CAPSULE PO (13:58)
[2020-11-27] MEDS: FAMOTIDINE 20 MG TABLET PO ×2 (13:58)
[2020-11-27] MEDS: ACETAMINOPHEN 325 MG TABLET 650 MG PO (13:58)
[2020-11-27 14:18] VITALS: BP 138/67; PULSE 55; RESP 18; TEMP 36.8; O2SAT 95
[2020-11-27 15:47] VITALS: BP 126/65; PULSE 52; RESP 16; TEMP 36.9; O2SAT 96
--- NOTE | 2020-11-27 15:53 | PC.NURSE ---
Patient provided with discharge paperwork and information packet prior to discharge. All questions answered by RN.
--- NOTE | 2020-11-28 11:01 | PC.NURSE ---
Spoke with patient regarding antibody infusion on 11/27/2020. Patient states he is feeling well and denies any side effects from medication. No questions at this time.
== END 2020-11-27 16:05 | disposition home or self-care (01) ==
LOC: AMCINF 13:48
PROVIDERS: Referring Provider Internal Medicine; Visit Provider Internal Medicine Hematology & Oncology
DX: Z23 Encounter for immunization (principal); U07.1 COVID-19; I10 Essential (primary) hypertension; I25.10 Atherosclerotic heart disease of native coronary artery without angina pectoris; J44.9 Chronic obstructive pulmonary disease, unspecified
CPT/HCPCS: A9270; M0243

== ENCOUNTER → 2021-06-26 08:40 | Outpatient (CLI) | payer MEDICARE, SELFPAY ==
[2021-06-26 14:35] LABS: SARS-CoV-2 RNA PCR Negative
== END ==
PROVIDERS: PCP Internal Medicine; Visit Provider Internal Medicine
DX: R68.89 Other general symptoms and signs (principal); Z20.822 Contact with and (suspected) exposure to COVID-19
CPT/HCPCS: C9803; U0003; U0005

== ENCOUNTER → 2021-07-04 10:19 | Outpatient (CLI) | payer MEDICARE, SELFPAY ==
--- NOTE | ~2021-07-04 | XR_ITS ---
XR chest 2V 07/04/2021 10:30 Indication: Dyspnea Procedure: 2 view chest Comparison: Comparison to multiple prior studies sequentially, with oldest reviewed study dated 06/2012. Findings: Heart size normal. Bibasilar airspace disease. No pleural effusion, edema or pneumothorax. Impression: 1: Bibasilar airspace disease may represent atelectasis or pneumonia. Reviewed, dictated and finalized at location A. Impression: 1: Bibasilar airspace disease may represent atelectasis or pneumonia.
== END ==
PROVIDERS: PCP Internal Medicine; Visit Provider Internal Medicine
DX: B34.9 Viral infection, unspecified (principal); R05.9 Cough, unspecified; R06.00 Dyspnea, unspecified
CPT/HCPCS: 71046

== ENCOUNTER 2021-07-13 15:15 | Outpatient (NON) | payer MEDICARE, SELFPAY ==
[2021-07-13 16:15] LABS: Appearance Synovial Fluid Hazy (Clear); Color Synovial Fluid Red (Colorless); Lymphocytes Synovial Fluid 22 %; Macrophages Synovial Fluid 4 %; Monocytes Synovial Fluid 28 %; Neutrophils Synovial Fluid 43 % (0-25); Nucleated Cell Synovial Fluid 349 /uL (0-200); Source Synovial Fluid Synovial fluid
[2021-07-13 16:16] LABS: Crystals Synovial Fluid None Seen (None Seen); Other Cells Synovial Fluid 3 %
== END 2021-07-13 15:16 | disposition home or self-care (01) ==
PROVIDERS: PCP Internal Medicine; Visit Provider Orthopaedic Surgery
DX: M25.561 Pain in right knee (principal); Z96.651 Presence of right artificial knee joint
CPT/HCPCS: 87070; 87075; 87205; 89051; 89060

== ENCOUNTER 2021-07-23 12:22 | Outpatient (CLI) | payer MEDICARE, SELFPAY ==
[2021-07-23 13:00] VITALS: PULSE 57; O2SAT 91
[2021-07-23 13:04] VITALS: PULSE 71; O2SAT 84
[2021-07-23 13:05] VITALS: O2SAT 85
[2021-07-23 13:06] VITALS: O2SAT 86
[2021-07-23 13:07] VITALS: O2SAT 92
[2021-07-23 13:15] VITALS: PULSE 60; O2SAT 91
--- NOTE | 2021-07-23 13:17 | HOMEO2EVAL ---
Evaluation was performed at [facility] Home Oxygen Evaluation RC: Home Oxygen (O2) Evaluation Start: 07/23/21 13:14 Freq: Status: Active Protocol: RPE Activity Type Activity Date Activity User E-Sign Co-Sign Detail Recorded Client Recorded Date Recorded By Document 07/23/21 13:00 HUMPHREY [email or web address] 07/23/21 13:16 HUMPHREY Document 07/23/21 13:04 HUMPHREY [email or web address] 07/23/21 13:16 HUMPHREY Document 07/23/21 13:05 HUMPHREY [id number] 07/23/21 13:16 HUMPHREY Document 07/23/21 13:06 HUMPHREY [email or web address] 07/23/21 13:16 HUMPHREY Document 07/23/21 13:07 HUMPHREY [email or web address] 07/23/21 13:16 HUMPHREY Document 07/23/21 13:15 HUMPHREY [email or web address] 07/23/21 13:16 HUMPHREY 07/23/21 07/23/21 07/23/21 13:00 13:04 13:05 Home O2 Evaluation Test Phase Resting Exercise Exercise Oxygen Delivery Room Air Room Air Nasal Cannula Oxygen Flow Rate (L/min) 1 Pulse Oximetry (90-100 %) 91 84 L 85 L Pulse Rate (60-100 beats/min) 57 L 71 Ambulation Distance (feet) Ambulation Distance (meters) Home Oxygen Evaluation Comments Treatment Charges O2 Evaluation - Outpatient 07/23/21 07/23/21 07/23/21 13:06 13:07 13:15 Home O2 Evaluation Test Phase Exercise Exercise Resting Oxygen Delivery Nasal Cannula Nasal Cannula Room Air Oxygen Flow Rate (L/min) 2 3 Pulse Oximetry (90-100 %) 86 L 92 91 Pulse Rate (60-100 beats/min) 60 Ambulation Distance (feet) 700 Ambulation Distance (meters) 213.34 Home Oxygen Evaluation Comments Pt. requires 3L home O2 with activity Treatment Charges
--- NOTE | 2021-07-23 13:17 | PCRCNOTE ---
Pt failed 6mwt, home o2 eval done, pt requires 3L O2 with activity. Faxed to office and called and left vm as to new home o2 set up needed.
== END 2021-07-23 12:23 | disposition home or self-care (01) ==
LOC: ANHPFT 12:24
PROVIDERS: PCP Internal Medicine; Visit Provider Nurse Practitioner Family
DX: R06.00 Dyspnea, unspecified (principal)
CPT/HCPCS: 94618

== ENCOUNTER 2022-05-06 00:47 | Day surgery (SDC) | payer MEDICARE, SELFPAY ==
[2022-04-29 09:55] VITALS: BMI 31.2
[2022-05-06 10:18] VITALS: BP 161/80; PULSE 54; RESP 18; TEMP 36.8; O2SAT 94; BMI 30.4
[2022-05-06] MEDS: LACTATED RINGERS 1,000 ML 150 ML IV CONT (10:46)
--- NOTE | 2022-05-06 10:47 | PM.HPGS ---
History of Present Illness History of Present Illness Consent: Risks, benefits, and alternatives have been discussed and questions answered. Patient agrees to proceed with procedure. Chief complaint: hx colon polyps Narrative: Gregor Parikh is a 76 year old male Presents for screening colonoscopy. Patient has a distant history of colon polyps. Most recent exam was 5 years ago. Patient also has an extensive prior history. 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 [place] to be cured. Additionally he has a distant history of right upper lobe lung cancer and renal cell cancer both felt to be free of disease currently. Has been 5 years since previous surgery in chemotherapy. Patient presents today for screening colonoscopy. He reports that his current weight appetite and bowel movements are normal. Family history noncontributory. Patient states he suspects he was exposed to chemicals while working. Review of Systems Review of Systems: Review of systems noncontributory. [facility] Past Medical History Medical History Anemia AVM (arteriovenous malformation) of colon CAD (coronary artery disease) Chronic anticoagulation COPD (chronic obstructive pulmonary disease) Duodenal cancer Hx of gastrointestinal hemorrhage Hypertension MERVIN (obstructive sleep apnea) Paroxysmal atrial fibrillation Persistent atrial fibrillation Surgical History Surgical History History of hip replacement Family History Family History Father Family history of emphysema, Onset Age: 84 Patient's father is Mother Family history of dementia, Onset Age: 86 Patient's mother is Social History Social History (Updated 02/03/22 @ 12:58 by Clara Rivera MA) Smoking packs per day: 2 Smoking cigarettes per day: 40.0 Years smoked: 40 Smoking pack-years: 80.00 Smoking status: Former smoker Tobacco type: cigarettes Second hand tobacco smoke exposure: Yes Smoking end date: 04/18/01 Alcohol intake: current Drinks per week: 5 Substance use: never Substance use type: does not use Other substance usage details: CBD oil BID Living arrangements: with family Gender identity (if verbalized by the patient): Male Spiritual care concerns: No Agree to blood products: Yes Meds Home Medications and Allergies Home Medications Medication Instructions Recorded Confirmed Type Bacillus coagulans 10 billion cell 1 cell PO DAILY 02/24/19 05/06/22 History capsule,delayed release (Probiotic (B. coagulans)) apixaban 5 mg tablet (Eliquis) 5 mg PO BID 02/24/19 05/06/22 History docusate sodium 100 mg capsule 100 mg PO BID 02/24/19 05/06/22 History cholecalciferol (vitamin D3) 125 125 mcg PO DAILY 05/29/19 05/06/22 History mcg (5,000 unit) tablet (Vitamin D3) sotalol 80 mg tablet 80 mg PO Q12HR #60 tabs 07/13/19 05/06/22 Rx inhalational spacing device #1 ea 08/07/20 05/06/22 Rx (Aerochamber MV spacer) simvastatin 20 mg tablet 20 mg PO HS #90 tabs 05/01/21 05/06/22 Rx levalbuterol tartrate 45 2 inh inhalation Q6H PRN shortness 07/03/21 05/06/22 Rx mcg/actuation aerosol inhaler of breath or wheezing #15 grams (Xopenex HFA) lisinopril 5 mg tablet 5 mg PO DAILY #90 tabs 07/12/21 05/06/22 Rx fluticasone 250 mcg-salmeterol 50 1 inh inhalation BID 90 days #180 08/05/21 05/06/22 Rx mcg/dose blistr powdr for ea inhalation (Advair Diskus) ezetimibe 10 mg tablet 10 mg PO DAILY 09/09/21 05/06/22 History tiotropium bromide 18 mcg capsule 1 cap inhalation DAILY 90 days #90 09/09/21 05/06/22 Rx with inhalation device (Spiriva caps with HandiHaler) pantoprazole 40 mg tablet,delayed 40 mg PO HS #90 tabs 12/11/21 05/06/22 Rx release sodium,potassium,mag sulfates 17.5 See Rx Inst
--- NOTE | 2022-05-06 10:58 | WPDANESEPPF ---
Anes - Initial Pre Proc Eval Procedure: Operation Date: 05/06/22 11:30 Proposed Procedures p Screening Colonoscopy - Reji Diana MD Date/Time: 05/06/22 10:58 Surgeon: Reji Diana MD Pre Op Diagnosis: hx colon polyps Patient Data Age: 76 Gender: M Height: 1.91 m Weight: 110.6 kg Last Vital Signs Temp 98.2 F 05/06/22 10:18 Pulse 54 L 05/06/22 10:18 Resp 18 05/06/22 10:18 BP 161/80 H 05/06/22 10:18 Pulse Ox 94 05/06/22 10:18 O2 Del Method Room Air 05/06/22 10:18 Allergies Allergy/AdvReac Type Severity Reaction Status Date / Time No Known Allergies Allergy NONE Verified 05/06/22 10:16 Home Medications Medication Instructions Recorded Confirmed Type Bacillus coagulans 10 billion cell 1 cell PO DAILY 02/24/19 05/06/22 History capsule,delayed release (Probiotic (B. coagulans)) apixaban 5 mg tablet (Eliquis) 5 mg PO BID 02/24/19 05/06/22 History docusate sodium 100 mg capsule 100 mg PO BID 02/24/19 05/06/22 History cholecalciferol (vitamin D3) 125 125 mcg PO DAILY 05/29/19 05/06/22 History mcg (5,000 unit) tablet (Vitamin D3) sotalol 80 mg tablet 80 mg PO Q12HR #60 tabs 07/13/19 05/06/22 Rx inhalational spacing device #1 ea 08/07/20 05/06/22 Rx (Aerochamber MV spacer) simvastatin 20 mg tablet 20 mg PO HS #90 tabs 05/01/21 05/06/22 Rx levalbuterol tartrate 45 2 inh inhalation Q6H PRN shortness 07/03/21 05/06/22 Rx mcg/actuation aerosol inhaler of breath or wheezing #15 grams (Xopenex HFA) lisinopril 5 mg tablet 5 mg PO DAILY #90 tabs 07/12/21 05/06/22 Rx fluticasone 250 mcg-salmeterol 50 1 inh inhalation BID 90 days #180 08/05/21 05/06/22 Rx mcg/dose blistr powdr for ea inhalation (Advair Diskus) ezetimibe 10 mg tablet 10 mg PO DAILY 09/09/21 05/06/22 History tiotropium bromide 18 mcg capsule 1 cap inhalation DAILY 90 days #90 09/09/21 05/06/22 Rx with inhalation device (Spiriva caps with HandiHaler) pantoprazole 40 mg tablet,delayed 40 mg PO HS #90 tabs 12/11/21 05/06/22 Rx release sodium,potassium,mag sulfates 17.5 See Rx Instructions PO .COMPLEX 04/22/22 05/06/22 Rx gram-3.13 gram-1.6 gram oral soln #354 mL (Suprep Bowel Prep Kit) Patient hx anesthesia problems: none Family hx anesthesia problems: none Results Review: All pre-operative results and documents have been reviewed as part of the pre-operative evaluation. [facility] Past Medical History Medical History Anemia AVM (arteriovenous malformation) of colon CAD (coronary artery disease) Chronic anticoagulation COPD (chronic obstructive pulmonary disease) Duodenal cancer Hx of gastrointestinal hemorrhage Hypertension MERVIN (obstructive sleep apnea) Paroxysmal atrial fibrillation Persistent atrial fibrillation Surgical History Surgical History History of hip replacement Family History Family History Father Family history of emphysema, Onset Age: 84 Patient's father is Mother Family history of dementia, Onset Age: 86 Patient's mother is Social History Social History (Updated 02/03/22 @ 12:58 by Clara Rivera MA) Smoking packs per day: 2 Smoking cigarettes per day: 40.0 Years smoked: 40 Smoking pack-years: 80.00 Smoking status: Former smoker Tobacco type: cigarettes Second hand tobacco smoke exposure: Yes Smoking end date: 04/18/01 Alcohol intake: current Drinks per week: 5 Substance use: never Substance use type: does not use Other substance usage details: CBD oil BID Living arrangements: with family Gender identity (if verbalized by the patient): Male Spiritual care concerns: No Agree to blood products: Yes Anes - Eval Final PreProcedure Day of Procedure 05/06/22 10:58 Patient weight: obese Heart: regular
[2022-05-06 11:24] VITALS: BP 116/68; PULSE 54; RESP 17; O2SAT 93
[2022-05-06 11:34] VITALS: BP 132/77; PULSE 52; RESP 15; O2SAT 95
[2022-05-06 11:44] VITALS: BP 142/83; PULSE 50; RESP 15; O2SAT 94
== END 2022-05-06 11:50 | disposition home or self-care (01) ==
PROVIDERS: PCP Internal Medicine; Visit Provider Internal Medicine Gastroenterology
PROC: 0DJD8ZZ Inspection of Lower Intestinal Tract, Via Natural or Artificial Opening Endoscopic (ICD-10-PCS; CPT 45378; principal; 2022-05-06 11:30)
DX: Z12.11 Encounter for screening for malignant neoplasm of colon (principal); D12.2 Benign neoplasm of ascending colon; K64.8 Other hemorrhoids; I25.10 Atherosclerotic heart disease of native coronary artery without angina pectoris; J44.9 Chronic obstructive pulmonary disease, unspecified; I10 Essential (primary) hypertension; I48.0 Paroxysmal atrial fibrillation; G47.33 Obstructive sleep apnea (adult) (pediatric); Z85.09 Personal history of malignant neoplasm of other digestive organs; Z87.891 Personal history of nicotine dependence; Z79.01 Long term (current) use of anticoagulants; Z79.51 Long term (current) use of inhaled steroids
CPT/HCPCS: 45385; 88305; J2704; J7120

== ENCOUNTER 2024-08-16 15:13 | Outpatient (CLI) | payer MEDICARE, SELFPAY ==
--- NOTE | ~2024-08-16 | XR_ITS ---
XR shoulder RT min 2V Ordering provider: Davon George APRN History: . Rt shoulder pain x 8 days w/o injury, replacement 2019 . Comparison: None. FINDINGS: BONES: No acute fracture or dislocation. JOINT SPACES: The acromioclavicular joint is normal. Right shoulder arthroplasty. SOFT TISSUES: Normal. IMPRESSION: No acute osseous abnormality right shoulder. Right shoulder arthroplasty Reviewed, dictated and finalized at location A.
== END 2024-08-16 15:14 | disposition home or self-care (01) ==
LOC: GOSHIMG 15:14
PROVIDERS: PCP Internal Medicine; Visit Provider Nurse Practitioner
DX: M25.511 Pain in right shoulder (principal)
CPT/HCPCS: 73030

== ENCOUNTER 2024-12-14 01:48 | Day surgery (SDC) | payer MEDICARE, SELFPAY ==
[2024-11-28 15:48] VITALS: BMI 30.3
--- NOTE | 2024-11-28 16:07 | PC.NURSE ---
Report to the Outpatient Waiting Room, entrance under the green pavilion located off [facility], at time ____1:30PM___ on date ____12/14/24___. Planned Procedure Time: 2:30PM___.? Time changes happen often and if your time is changed the preop area will call you the afternoon before. - You and your visitor will be asked to self-screen and do not enter if you have any COVID symptoms. Please call surgeon if you need to reschedule. - A mask is optional within the hospital at this time. PATIENT MAY HAVE LIGHT LUNCH PRIOR TO SURGERY. Take only the following medications with a SIP of water on the morning of surgery: AM MEDS DO NOT STOP ANY OF YOUR OTHER PRESCRIPTION MEDICATIONS PRIOR TO SURGERY EXCEPT THE FOLLOWING Medications to discontinue per physician ____HOLD ELIQUIS 3 DAYS PRE-OP PER DR BAUGH Date to take last dose 12/10/24 Please no make-up, nail korean, hairspray, perfume, deodorant, or body powder the day of surgery.? No jewelry (including any body piercings) or valuables the day of surgery, leave them at home.? Please take a shower or bath the night before, or the morning of, surgery with an antibacterial soap.? Wear comfortable, loose fitting clothing.? Children are encouraged to wear pajamas. - Jewelry must be removed prior to entering the operating room.? Rings and piercings that are not removed may be cut off. - The hospital will not accept responsibility for valuables.? - Please leave all valuables, including medications, at home the day of surgery. If you are going home after surgery, a licensed locomotive driver must drive you home.? - NO public transportation without another adult if you receive anesthesia. - We recommend that an adult stay with you for 24 hours following discharge. - We also recommend that you do not drive, make important decision, drink alcoholic beverages, or take any drugs that were not prescribed by your health care provider for at least 24 hours after your discharge time. For Pediatric surgeries, we recommend two adults accompany the child home. Follow any additional instructions given to you from your surgeon. Telephone instructions given to ____PATIENT'S WIFE and asked if any additional questions and then verbalized understanding. Patient advised to call surgeon office or pre surgery nurse liaison [phone] if any additional questions.
[2024-12-14] VITALS (7 sets, daily range): BP systolic 173–197; BP diastolic 88–107; PULSE 51–56; RESP 14–18; TEMP 36.5; O2SAT 90–96; BMI 31.0
--- NOTE | 2024-12-14 07:44 | WPDHPUPDATE1 ---
History and Physical Update Update Date/Time: 12/14/24 07:44 History and Physical has been reviewed, including an updated exam of the patient. There are NO changes in the patient's condition. Risks, benefits, and alternatives have been discussed and questions answered. Patient agrees to proceed with procedure.
[2024-12-14] MEDS: LIDO 1%/EPINEPHRINE 1:100,000 20 ML VIAL 30 ML INFILTRATE (10:35)
[2024-12-14] MEDS: BUPivacaine HCL 0.5% 10 ML AMP 30 ML INFILTRATE (10:36)
--- NOTE | 2024-12-14 10:49 | S_PTH ---
PATIENT: Gregor Parikh LOC: [facility] U#:[id number] AGE/SX: 79/M ROOM: RE12/14/[address]: Dimitry Brooke MD : 1945 BED: DIS: 12/14/2024 SPEC #: [id number] RECD: 12/14/24 11:17 STATUS: JAMES REQ #: [id number] SANYT: 12/14/24 10:[address]: Dimitry Brooke DEPT: [facility] Surgical RECD BY: Jayda Shore ENTERED: 12/14/24 11:18 SP TYPE: Surgical OTHR DR: Mp Winkler DO Tissues: A - Cyst Procedures: Hematoxylin and Eosin Stain Gross and Microscopic Level 4
--- NOTE | 2024-12-16 17:51 | W.PM.PROC2 ---
Procedure Note - Detailed Date of Procedure 12/14/24 Pre-op Diagnosis Sebaceous Cyst of the Back Post-op Diagnosis Same Procedure Performed Excision of mid upper back sebaceous cyst with 8cm intermediate layered wound closure. Surgeon Dimitry Brooke MD Anesthesia Local Indications Patient is a 79-year-old gentleman presented with a non ruptured sebaceous cyst on the upper midportion of his back. He presents now for excision of the cyst. Findings The cyst measured approximately 4.5x4x1.5cm After was excised from the back. It required a 8cm intermediate layered wound closure to close the defect. Description of Procedure After informed consent was obtained patient was brought to the operating room was placed prone on the operating table. Pressure points were padded. The area of the mid upper back region was then prepped and draped usual sterile fashion. Time-out was then performed and the patient was identified as well as the procedure to be performed. Site marking was verified. He was not given any antibiotics as no IV was started. I then used 1% lidocaine mixed with 0.5% Marcaine injected around the large sebaceous cyst in the upper and midportion of the back. After adequate anesthesia had been obtained I then made a transverse elliptical incision with a scalpel down to the dermis skin but not into the wall of the cyst. I then utilized sharp scalpel dissection and scissor dissection to dissect superiorly and inferiorly around the wall the cyst to shell it out from overlying dermis of the skin and surrounding subcutaneous tissues. Once I got deep enough I then completely excised off the cyst without rupturing the wall with electrocautery. The specimen was then sent to pathology for examination. It measured 4.5x4x1.5cm. Hemostasis was then achieved in the incision with electrocautery. Was then irrigated sterile saline solution. An 8cm in length intermediate layered closure was then performed. Interrupted 0 and 2-0 Vicryl sutures were placed in the deeper portions of the subcutaneous tissues which was then followed by layer interrupted 3-0 Vicryl sutures the deep dermal layer. The skin edges were then approximated utilizing 3-0 nylon sutures placed in an interrupted vertical mattress fashion. There was no tension on the closure. The incision was then cleaned and antibiotic ointment and then a sterile dressing was applied. The patient tolerated the procedure well no complications. All sponges, needles, and instrument counts were correct at the end procedure. EBL was _10__cc. The patient was awakened and taken to recovery in stable and satisfactory condition. Implants None Estimated Blood Loss 10 Drains No Packing No Pathology Yes ( sebaceous cyst sent to pathology) Complications No immediate complications Condition Stable Disposition Same day [facility] Billing Surgery - Charge Forward: Surgery Billing
== END 2024-12-14 11:35 | disposition home or self-care (01) ==
PROVIDERS: PCP Internal Medicine; Visit Provider Surgery
PROC: (CPT 11406; principal; 2024-12-14 10:00)
DX: L72.0 Epidermal cyst (principal)
CPT/HCPCS: 11406; 12034; 88305; A9270; J2004